=== PATIENT | male | born 1995 | race Caucasian/White ===

== ENCOUNTER 2018-08-08 20:45 | Emergency (ER) | payer SELFPAY ==
[~2018-08-08] VITALS: Ht 177.8 cm; Wt 70.5 kg
[~2018-08-08 20:45] MED LIST: ZOLOFT 25MG25 MG PO
[2018-08-08 20:58] VITALS: TEMP 98
[2018-08-08] MEDS ORDERED: AMOXICILLIN 8751 TAB PO (22:09)
[2018-08-08 22:22] VITALS: BP 115/69; PULSE 81
== END 2018-08-08 22:23 | disposition home or self-care (01) ==
LOC: COL.ER 20:45
DX: S61.551A Open bite of right wrist, initial encounter (principal); F31.9 Bipolar disorder, unspecified; F12.90 Cannabis use, unspecified, uncomplicated; Z23 Encounter for immunization; W54.0XXA Bitten by dog, initial encounter

== ENCOUNTER 2021-12-22 19:32 | Emergency (ER) | payer BC ==
[~2021-12-22] VITALS: Ht 177.8 cm; Wt 96.4 kg
[~2021-12-22 19:32] MED LIST changes: +AMOXICILLIN 8751 TAB PO
[2021-12-22 19:42] VITALS: TEMP 99.3
[2021-12-22 21:50] VITALS: BP 113/78; PULSE 97
[2021-12-22] MEDS ORDERED: ZOFRAN ODT4 MG PO (21:52)
== END 2021-12-22 21:57 | disposition home or self-care (01) ==
LOC: COL.ER 19:32
DX: U07.1 COVID-19 (principal)